=== PATIENT | female | born 1980 | race Caucasian/White ===

== ENCOUNTER → 2022-11-09 08:28 | Outpatient (BNVA) | payer OTHER, SELFPAY | PROVIDERS: PCP Family Medicine; Visit Provider Nurse Practitioner Family ==

== ENCOUNTER → 2022-12-21 10:36 | Outpatient (REF) | payer OTHER, SELFPAY | LOC: HO.SL 10:36 | PROVIDERS: Visit Provider Nurse Practitioner Family | DX: G47.19 Other hypersomnia (principal); G43.709 Chronic migraine without aura, not intractable, without status migrainosus; R06.83 Snoring; R53.83 Other fatigue | CPT/HCPCS: 95806 ==

== ENCOUNTER → 2022-12-21 11:05 | Outpatient (BNV) | payer OTHER, SELFPAY | PROVIDERS: Visit Provider Psychiatry & Neurology Neurology | DX: R06.83 Snoring (principal) | CPT/HCPCS: 95806 ==

== ENCOUNTER 2023-03-14 08:02 | Outpatient (AMB) | payer OTHER, SELFPAY ==
--- NOTE | 2023-03-14 08:24 | A.OFFVIS_ITS ---
Intake Vital Signs 03/14/23 08:25 Height 5 ft 5 in BP 122/84 Blood Pressure Location Rt brachial Position Sitting Intake Visit Reasons: 3month follow up Migraines-LVM Intake Note: patient presents for 3 month follow up. patient states Headaches not getting better Allergies No Known Allergies Allergy (Verified 03/14/23 08:26) Medication List - Last Reconciled 03/14/23 by PAIGE Santoyo magnesium oxide 400 mg PO BEDTIME 30 days norethindrone ac-eth estradiol 1-20 mg-mcg (Junel) 1 tab PO DAILY propranolol 10 mg PO BID 30 days riboflavin (vitamin B2) 400 mg (4 x 100 mg) PO DAILY 30 days sertraline 100 mg PO DAILY topiramate 50 mg PO BID zolmitriptan mg PO HPI HPI Comments History of Present Illness Details 42-yr-old female presents for f/u visit. Pt denies any significant interval medical changes. Pt reports she is now having an almost daily headache now that she has returned to work. She is usually better on the weekend. She did not tolerate Propranol- made her feel too sleepy. She is compliant w/ Topiramte- feels it does help reduce the intensity of the headaches- however wonders if this could be causing a rash she has been having on her lower legs. She has seen derm for this and they were not sure ratna Topiramate would could this. Her Zomig usually works, rarely needs to repeat a dose, but soemtimes repeats x's 1-2 times. She continues to have sleep difficulties- wakes up every night around 2-3am and has difficulty falling back to sleep. Her HST showed AHI 0.1/hr and O2 shahid 89%. She notes she did not sleep well during the study. She takes Sertraline 100mg qhs. [facility] Surgical History History of knee surgery Family History Father Alcoholism Leukemia Mother Hypertension Brain tumor Social History Alcohol intake: never Patient Tobacco Use Status: Never used Tobacco Review of Systems Const All systems reviewed & are unremarkable except as noted in HPI and below Physical Exam Vital Signs: Last Vital Signs BP 122/84 03/14/23 08:25 Const General: cooperative and no acute distress Orientation/consciousness: patient oriented x3 HEENT Head: Yes normocephalic Resp Effort & Inspection: normal respiratory effort and able to speak in complete sentences Neuro General: patient oriented x3, gait normal and CN's II-XI intact bilaterally Cognition (Neuro): normal cognition Motor exam (neuro): 5/5 motor strength present throughout Psych Appearance: grossly normal Mental Status: mental status grossly normal Speech and movement: Normal speech and movement present Affect: normal affect Attitude: cooperative Thought process: Normal thought process present Thought content: Normal thought content present Insight: Good insight present (Psych) Judgement: Good judgement present (Psych) Assessment & Plan Assessment & Plan (1) Chronic migraine without aura: Code(s): G43.709 - Chronic migraine without aura, not intractable, without status migrainosus (2) Cervicalgia: Code(s): M54.2 - Cervicalgia (3) Excessive daytime sleepiness: Code(s): G47.19 - Other hypersomnia (4) Sleep difficulties: Code(s): G47.9 - Sleep disorder, unspecified (5) Fatigue: Code(s): R53.83 - Other fatigue (6) Snoring: Code(s): R06.83 - Snoring Plan Reviewed HST- inconclusive- pt advised to undergo in-lab PSG. Adjust Sertraline to qam- in hopes this alleviates sleep fragmentation. For overall headache management: Continue to try to optimize good self-care, including but not limited to maintaining a healthy diet, adequate fluid intake, adequate sleep, and engaging in regular physical activity. Track headaches. ? For acute headache treatment: Continue Zolmitriptan 5mg prn. Previous acute migraine medication trials: None other Acute migraine medication contraindications: None at this time ? For headache prevention medication: Continue Riboflavin 400mg qam Continue Magnesium 400mg qhs Reduce Topiramate from 50mg bid to 50mg qhs- monitor rash. Topiramate does carry a s/e risk fo erythema multiforme. Stop Propranolol 10mg po bid. Trial Ajovy 225mg sc q month. Previous migraine prevention medication trials: Amitriptyline- ineffective. Propranolol- not tolerated- caused fatigue/tiredness/ Migraine prevention medication contraindications: None at this time. Future considerations: Botox. ? Pt to follow-up in 3-4 months or sooner prn. Orders: Orders RT PSG in-lab sleep study Today G47.19 - Other hypersomnia, G47.9 - Sleep disorder, unspecified, R06.83 - Snoring Medications: New fremanezumab-vfrm (Ajovy) administer 225mg sc q month 225 mg (1.5 mL) subcut ONCE 1.5 mL 6RF 30 days Coding Level of Care Code Est Pt Level 4 (65766) Diagnoses Chronic migraine without aura G43.709 Cervicalgia M54.2 Excessive daytime sleepiness G47.19 Sleep difficulties G47.9 Fatigue R53.83 Snoring R06.83
[2023-03-14 08:25] VITALS: BP 122/84
== END 2023-03-14 09:02 | disposition home or self-care (01) ==
PROVIDERS: Visit Provider Nurse Practitioner Family
DX: G43.709 Chronic migraine without aura, not intractable, without status migrainosus (principal); M54.2 Cervicalgia; G47.19 Other hypersomnia; G47.9 Sleep disorder, unspecified; R53.83 Other fatigue; R06.83 Snoring
CPT/HCPCS: 99214

== ENCOUNTER → 2023-03-14 08:02 | Outpatient (BNVA) | payer OTHER, SELFPAY | PROVIDERS: Visit Provider Nurse Practitioner Family ==

== ENCOUNTER 2023-06-24 08:09 | Outpatient (AMB) | payer OTHER, SELFPAY ==
--- NOTE | 2023-06-24 08:30 | A.OFFVIS_ITS ---
Intake Vital Signs 06/24/23 08:31 Height 5 ft 5 in Weight 243 lb BMI 40.4 BP 118/82 Blood Pressure Location Rt brachial Position Sitting Pulse 85 Pulse Source Pulse Oximeter Pulse Oximetry (%) 98 Oxygen Delivery Method Room Air Intake Visit Reasons: 3 mnts f/u for migraines - LVM Intake Note: Patient presents for 3 month follow up migraines Im still having headaches, we were supposed to start some injections not sure what happened with that. Allergies No Known Allergies Allergy (Verified 06/24/23 08:33) Medication List - Last Reconciled 06/24/23 by PAIGE Santoyo fremanezumab-vfrm (Ajovy) 225 mg (1.5 mL) subcut ONCE 30 days magnesium oxide 400 mg PO BEDTIME 30 days norethindrone ac-eth estradiol 1-20 mg-mcg (Junel) 1 tab PO DAILY propranolol 10 mg PO BID 30 days riboflavin (vitamin B2) 400 mg (4 x 100 mg) PO DAILY 30 days sertraline 100 mg PO DAILY topiramate 50 mg PO BID zolmitriptan mg PO HPI HPI Comments History of Present Illness Details 42-yr-old female presents for f/u visit. Pt denies any interval infections. She did have left lower lip fibroma excision- was benign, but was on a soft diet up until 2 days ago. She has been having more left sinus pain- but no dental pain, nasal congestion, fever, cough, or URI s/s She has been having more headaches, a bit different than her usual, more vincent than typical, more frequent. Baseline headache characteristics: Aura: May rarely see a squiggly line. Severe left sided constant sharp/driving pain a/w photophpbia, phonophobia, osmophobia, allodynia, N/V, need to move slowly- may induce a not right in space feeling, cannot function. Current number of typical migraine days per month: Every day in the past- more sharp. prior 4-5 days per week. Average painfulness of these migraines: This week severe, prior more moderate Current number of non-migraine headache days per month: a couple a month Average painfulness of these headaches: milder Current number of days of acute medication use per month: rare Previous number of migraine days per month prior to starting current preventive tx: 4-5 days per week [facility] Surgical History History of knee surgery Family History Father Alcoholism Leukemia Mother Hypertension Brain tumor Social History Alcohol intake: never Patient Tobacco Use Status: Never used Tobacco Physical Exam Vital Signs: Last Vital Signs Pulse 85 06/24/23 08:31 BP 118/82 06/24/23 08:31 Pulse Ox 98 06/24/23 08:31 Oxygen Delivery Method Room Air 06/24/23 08:31 BMI result Body Mass Index 40.4 Const General: cooperative and no acute distress Orientation/consciousness: patient oriented x3 HEENT Other: Mild left lower maxillary sinus tenderness to touch. No nasal congestion. Resp Effort & Inspection: normal respiratory effort and able to speak in complete sentences Neuro General: patient oriented x3 Cranial nerves: Yes CN's II-XII intact bilaterally Cognition (Neuro): normal cognition Psych Appearance: grossly normal Mental Status: mental status grossly normal Speech and movement: Normal speech and movement present Affect: normal affect Attitude: cooperative Assessment & Plan Assessment & Plan (1) Chronic migraine without aura: Code(s): G43.709 - Chronic migraine without aura, not intractable, without status migrainosus (2) Migraine with aura: Code(s): G43.109 - Migraine with aura, not intractable, without status migrainosus (3) Sleep difficulties: Code(s): G47.9 - Sleep disorder, unspecified Plan HST- inconclusive- f/u on status of in-lab PSG. ? For overall headache management: Continue to try to optimize good self-care, including but not limited to maintaining a healthy diet, adequate fluid intake, adequate sleep, and engaging in regular physical activity. Track headaches. ? For acute headache treatment: Continue Zolmitriptan 5mg prn. Trial Ubrelvy sample- in hopes this helps recent increased headaches. Previous acute migraine medication trials: None other Acute migraine medication contraindications: None at this time ? For headache prevention medication: Continue Riboflavin 400mg qam Continue Magnesium 400mg qhs Continue Topiramate. Start Ajovy 225mg sc q month- will start today w/ sample Ajovy dose and injection training by EMMANUELLE. Previous migraine prevention medication trials: Amitriptyline- ineffective. Propranolol- not tolerated- caused fatigue/tiredness/ Migraine prevention medication contraindications: None at this time. Future considerations: Botox. ? Pt to follow-up in 3-4 months or sooner prn. Ubrelvy 100mg tab sample, 1 tab per box, given to pt: 1 tab at onset, MR hayes's 1 (max 2 tabs per day) 2 boxes, w/ 1 tablet each, Lot # [id number], exp 03/07 1 box, w/ 1 tab, lot # [id number], exp 03/07 (total 3 boxes for 3 100mg tabs) Documented by Cailin Gaytan RN: 42 y/o female patient presents for Ajovy injection training. Ajovy 225 mg/1.5ml injection sample provided. Lot #[id number] and Apr 2025 Education regarding injection and side effects provided. Reviewed storage instructions and gave savings card information. Ajovy 225 mg/1.5ml injection administered on RLQ. Pt tolerated the injection well. Medications: Refilled fremanezumab-vfrm (Ajovy) administer 225mg sc q month 225 mg (1.5 mL) subcut ONCE 30 days 1.5 mL 6RF Coding Level of Care Code Est Pt Level 4 (78074) Diagnoses Chronic migraine without aura G43.709 Migraine with aura G43.109 Sleep difficulties G47.9
[2023-06-24 08:31] VITALS: BP 118/82; PULSE 85; O2SAT 98; BMI 40.4
== END 2023-06-24 08:59 | disposition home or self-care (01) ==
PROVIDERS: PCP Family Medicine; Visit Provider Nurse Practitioner Family
DX: G43.709 Chronic migraine without aura, not intractable, without status migrainosus (principal); G43.109 Migraine with aura, not intractable, without status migrainosus; G47.9 Sleep disorder, unspecified
CPT/HCPCS: 99214

== ENCOUNTER → 2023-06-24 08:09 | Outpatient (BNVA) | payer OTHER, SELFPAY | PROVIDERS: PCP Family Medicine; Visit Provider Nurse Practitioner Family ==

== ENCOUNTER 2023-10-07 08:08 | Outpatient (AMB) | payer OTHER, SELFPAY ==
--- NOTE | 2023-10-07 08:10 | A.OFFVIS_ITS ---
Vital Signs 10/07/23 08:11 Height 5 ft 5 in Weight 246 lb BMI 40.9 BP 112/78 Blood Pressure Location Rt brachial Position Sitting Pulse 75 Pulse Source Pulse Oximeter Pulse Oximetry (%) 100 Oxygen Delivery Method Room Air Intake Visit Reasons: 4M follow up/ LVM Intake Note: Patient presents for 4 month follow up. patients headaches are better Allergies No Known Allergies Allergy (Verified 10/07/23 08:12) Medication List - Last Reconciled 10/07/23 by PAIGE Santoyo fremanezumab-vfrm (Ajovy) 225 mg (1.5 mL) subcut ONCE 30 days magnesium oxide 400 mg PO BEDTIME 30 days norethindrone ac-eth estradiol 1-20 mg-mcg (Junel) 1 tab PO DAILY propranolol 10 mg PO BID 30 days riboflavin (vitamin B2) 400 mg (4 x 100 mg) PO DAILY 30 days sertraline 100 mg PO DAILY topiramate 50 mg PO BID zolmitriptan mg PO HPI Comments Details: 42-yr-old female presents for f/u visit. Pt denies any significant interval medical changes. Pt is wondering if she can have the Ajovy autoinjector version rather than the syringe version which she has been receiving. Note- it is ordered as autoinjector. She states her migraine attacks are better. Not running out of her acute med by the end of the month. She is having 2-3 migraine attacks per week, which are more manageable. She did notice an increase headache on a day when she forgot to take her am Topiramate. Baseline headache characteristics: Aura: May rarely see a squiggly line. Severe left sided constant sharp/driving pain a/w photophpbia, phonophobia, osmophobia, allodynia, N/V, need to move slowly- may induce a not right in space feeling, cannot function. She feels more cognitive difficulties. She is having more difficulty following conversations, and can be forgetful. Has left the stove on or the sink bathroom sink running- flooded her bathroom. Has always needed to keep lists, but now has lists upon lists. She feels she is sleeping better. She takes daily walks. Has h/o depression, depression feels better. Has anxiety. No dx of ADD/ADHD. [facility] Surgical History History of knee surgery Family History Father Alcoholism Leukemia Mother Hypertension Brain tumor Social History Alcohol intake: never Patient Tobacco Use Status: Never used Tobacco Physical Exam Vital Signs: Last Vital Signs Pulse 75 10/07/23 08:11 BP 112/78 10/07/23 08:11 Pulse Ox 100 10/07/23 08:11 Oxygen Delivery Method Room Air 10/07/23 08:11 BMI result Body Mass Index 40.9 Const General: cooperative and no acute distress Orientation/consciousness: patient oriented x3 Resp Effort & Inspection: normal respiratory effort and able to speak in complete sentences Neuro General: patient oriented x3 Cranial nerves: Yes CN's II-XII intact bilaterally Cognition (Neuro): normal cognition Psych Appearance: grossly normal Mental Status: mental status grossly normal Speech and movement: Normal speech and movement present Affect: normal affect Attitude: cooperative Assessment & Plan Assessment & Plan (1) Migraine with aura: Code(s): G43.109 - Migraine with aura, not intractable, without status migrainosus Category: Medical (2) Cognitive dysfunction: Code(s): F09 - Unspecified mental disorder due to known physiological condition Category: Medical (3) Anxiety: Code(s): F41.9 - Anxiety disorder, unspecified Category: Medical Plan Will request psychiatry consult- for worsening cognitive s/s. Labs for common etiologies of cognitive s/s. HST- inconclusive- upon review of above, reconsider in-lab PSG to assess for PLMS. ? For overall headache management: Continue to try to optimize good self-care, including but not limited to maintaining a healthy diet, adequate fluid intake, adequate sleep, and engaging in regular physical activity. Track headaches. ? For acute headache treatment: Continue Zolmitriptan 5mg prn. Previous acute migraine medication trials: None other Acute migraine medication contraindications: None at this time ? For headache prevention medication: Continue Riboflavin 400mg qam Continue Magnesium 400mg qhs Continue Topiramate. Discussed trying long-acting version, however pt is hesitant to disrupt her current migraine tx regimen, as it is effective right now. Continue Ajovy 225mg sc q month, as pt has had significant reduction in migraine severity, frequency, and prn med use. Previous migraine prevention medication trials: Amitriptyline- ineffective. Propranolol- not tolerated- caused fatigue/tiredness/ Migraine prevention medication contraindications: None at this time. Future considerations: Botox. ? Pt to follow-up in 6 months or sooner prn. Orders: Orders MALIK Reflex Titer and Pattern Today F09 - Unspecified mental disorder due to known physiological condition, F41.9 - Anxiety disorder, unspecified, G43.109 - Migraine with aura, not intractable, without status migrainosus, R53.83 - Other fatigue Syphilis Screen Today F09 - Unspecified mental disorder due to known physiological condition, F41.9 - Anxiety disorder, unspecified, G43.109 - Migraine with aura, not intractable, without status migrainosus, R53.83 - Other fatigue Complete Blood Count Auto Diff Today F09 - Unspecified mental disorder due to known physiological condition, F41.9 - Anxiety disorder, unspecified, G43.109 - Migraine with aura, not intractable, without status migrainosus, R53.83 - Other fatigue Homocysteine Today D64.9 - Anemia, unspecified, F09 - Unspecified mental disorder due to known physiological condition, F41.9 - Anxiety disorder, unspecified, G43.109 - Migraine with aura, not intractable, without status migrainosus, R53.83 - Other fatigue IRON PROFILE Today D64.9 - Anemia, unspecified, F09 - Unspecified mental disorder due to known physiological condition, F41.9 - Anxiety disorder, unspecified, G43.109 - Migraine with aura, not intractable, without status migrainosus, R53.83 - Other fatigue Ferritin Today D64.9 - Anemia, unspecified, F09 - Unspecified mental disorder due to known physiological condition, F41.9 - Anxiety disorder, unspecified, G43.109 - Migraine with aura, not intractable, without status migrainosus, R53.83 - Other fatigue Hemoglobin A1c Today F09 - Unspecified mental disorder due to known physiological condition, F41.9 - Anxiety disorder, unspecified, G43.109 - Migraine with aura, not intractable, without status migrainosus, R53.83 - Other fatigue Comprehensive Met. Panel Today F09 - Unspecified mental disorder due to known physiological condition, F41.9 - Anxiety disorder, unspecified, G43.109 - Migraine with aura, not intractable, without status migrainosus, R53.83 - Other fatigue Erythrocyte Sedimentation Rate Today F09 - Unspecified mental disorder due to known physiological condition, F41.9 - Anxiety disorder, unspecified, G43.109 - Migraine with aura, not intractable, without status migrainosus, R53.83 - Other fatigue Rheumatoid Factor Today F09 - Unspecified mental disorder due to known physiological condition, F41.9 - Anxiety disorder, unspecified, G43.109 - Migraine with aura, not intractable, without status migrainosus, R53.83 - Other fatigue TSH reflex Free T4 Today F09 - Unspecified mental disorder due to known physiological condition, F41.9 - Anxiety disorder, unspecified, G43.109 - Migraine with aura, not intractable, without status migrainosus, R53.83 - Other fatigue Vitamin B12 and Folate Today D64.9 - Anemia, unspecified, F09 - Unspecified mental disorder due to known physiological condition, F41.9 - Anxiety disorder, unspecified, G43.109 - Migraine with aura, not intractable, without status migrainosus, R53.83 - Other fatigue Methylmalonic Acid Today D64.9 - Anemia, unspecified, F09 - Unspecified mental disorder due to known physiological condition, F41.9 - Anxiety disorder, unspecified, G43.109 - Migraine with aura, not intractable, without status migrainosus, R53.83 - Other fatigue HIV Ab/Ag Today F09 - Unspecified mental disorder due to known physiological condition, F41.9 - Anxiety disorder, unspecified, G43.109 - Migraine with aura, not intractable, without status migrainosus, R53.83 - Other fatigue CRP High Sensitivity Today F09 - Unspecified mental disorder due to known physiological condition, F41.9 - Anxiety disorder, unspecified, G43.109 - Migraine with aura, not intractable, without status migrainosus, R53.83 - Other fatigue Folate Today D64.9 - Anemia, unspecified Referrals Psychiatry Outpatient Consultation Service F09 - Unspecified mental disorder due to known physiological condition, F41.9 - Anxiety disorder, unspecified, G43.109 - Migraine with aura, not intractable, without status migrainosus, R53.83 - Other fatigue, Z86.59 - Personal history of other mental and behavioral disorders, Z87.59 - Personal history of other complications of , childbirth and the puerperium Coding Level of Care Code Est Pt Level 4 (90332) Diagnoses Migraine with aura G43.109 Cognitive dysfunction F09 Anxiety F41.9
[2023-10-07 08:11] VITALS: BP 112/78; PULSE 75; O2SAT 100; BMI 40.9
== END 2023-10-07 09:02 | disposition home or self-care (01) ==
PROVIDERS: PCP Family Medicine; Visit Provider Nurse Practitioner Family
DX: G43.109 Migraine with aura, not intractable, without status migrainosus (principal); R41.89 Other symptoms and signs involving cognitive functions and awareness; F41.9 Anxiety disorder, unspecified
CPT/HCPCS: 99214

== ENCOUNTER → 2023-10-07 08:08 | Outpatient (BNVA) | payer OTHER, SELFPAY | PROVIDERS: PCP Family Medicine; Visit Provider Nurse Practitioner Family ==

== ENCOUNTER 2024-10-12 08:30 | Outpatient (AMB) | payer OTHER, SELFPAY ==
[2024-10-12 08:41] VITALS: BP 120/90; PULSE 81; O2SAT 97; BMI 41.3
--- NOTE | 2024-10-12 08:41 | MHC.OFFVIS ---
Vital Signs 10/12/24 08:41 Height 5 ft 5 in Weight 248 lb BMI 41.3 BP 120/90 H Blood Pressure Location Lt brachial Pulse 81 Pulse Source Pulse Oximeter Pulse Oximetry (%) 97 Oxygen Delivery Method Room Air Intake Visit Reasons: Migraine follow-up Intake Note: Patient presents follow up for migraines. Material Expeditor Required: No Accompanied by: Self / Same As Patient Allergies No Known Allergies Allergy (Verified 10/12/24 08:43) Medication List - Last Reconciled 10/12/24 by PAIGE Santoyo cyanocobalamin (vitamin B-12) 500 mcg PO DAILY 30 days fremanezumab-vfrm (Ajovy) 225 mg (1.5 mL) subcut ONCE 30 days magnesium oxide 400 mg PO BEDTIME 30 days norethindrone ac-eth estradiol 1-20 mg-mcg (Junel) 1 tab PO DAILY propranolol 10 mg PO BID 30 days riboflavin (vitamin B2) 400 mg (4 x 100 mg) PO DAILY 30 days sertraline 100 mg PO DAILY tirzepatide (weight loss) (Zepbound) 5 mg subcut QWEEK zolmitriptan mg PO HPI Comments Details: 43-yr-old female presents for f/u visit for migraine. Pt denies any significant interval medical changes. Pt has also started Zepbound tx- and is tolertaing that well. Pt stopped the Ajovy as she was having increasingly worse injection site reactions, which would extend across her arm- this was painful, tingly, itchy, hot, and made it difficult to sleep- even with premedicating with benadryl. She stopped topiramate d/t insurance denial. Currently, her migraine attacks have increased since stopping Ajovy. Not running out of her acute med by the end of the month. Again having 4-5 migraine attacks per week, which are less managable. She did notice an increase headache on a day when she forgot to take her am Topiramate. Baseline headache characteristics: Aura: May rarely see a squiggly line. Severe left sided constant sharp/driving pain a/w photophpbia, phonophobia, osmophobia, allodynia, N/V, need to move slowly- may induce a not right in space feeling, cannot function. She feels her cognitive s/s are a bit better off of topiramate. [facility] Medical History (Updated 03/13/24 @ 09:17 by PAIGE Santoyo) Weight gain Surgical History History of knee surgery Family History Father Alcoholism Leukemia Mother Hypertension Brain tumor Social History Alcohol intake: never Patient Tobacco Use Status: Never used Tobacco Physical Exam Vital Signs: Last Vital Signs Pulse 81 10/12/24 08:41 BP 120/90 H 10/12/24 08:41 Pulse Ox 97 10/12/24 08:41 Oxygen Delivery Method Room Air 10/12/24 08:41 BMI result Body Mass Index 41.3 Const General: cooperative and no acute distress Orientation/consciousness: patient oriented x3 Resp Effort & Inspection: normal respiratory effort and able to speak in complete sentences Neuro General: patient oriented x3 Cranial nerves: Yes CN's II-XII intact bilaterally Cognition (Neuro): normal cognition Psych Appearance: grossly normal Mental Status: mental status grossly normal Speech and movement: Normal speech and movement present Affect: normal affect Attitude: cooperative Assessment & Plan Assessment & Plan (1) Migraine with aura: Code(s): G43.109 - Migraine with aura, not intractable, without status migrainosus Category: Medical (2) Cognitive dysfunction: Code(s): F09 - Unspecified mental disorder due to known physiological condition Category: Medical (3) Anxiety: Code(s): F41.9 - Anxiety disorder, unspecified Category: Medical Plan For cognitive s/s: Continue vitamin B1-2 500mcg daily. Improved off topiramate. Monitor clinically. HST- inconclusive- upon review of above, reconsider in-lab PSG to assess for PLMS. ? For overall headache management: Continue to try to optimize good self-care, including but not limited to maintaining a healthy diet, adequate fluid intake, adequate sleep, and engaging in regular physical activity. Track headaches. ? For acute headache treatment: Continue Zolmitriptan 5mg prn. Previous acute migraine medication trials: None other Acute migraine medication contraindications: None at this time ? For headache prevention medication: Continue Riboflavin 400mg qam Continue Magnesium 400mg qhs Pt has stopped Topiramate- cognition has improved thus will d/c order. Stop Ajovy 225mg sc q month- caused severe diffuse injection site reaction. Start Aimovig 140mg/ml autoinjector, 1ml (140mg) subcutaneous injection once a month. Potential adverse effects of Aimovig include but are not limited to injection site reactions, cramps, constipation, increase in blood pressure. Previous migraine prevention medication trials: Amitriptyline- ineffective. Propranolol- not tolerated- caused fatigue/tiredness. Topiramate caused cognitive difficulties. Ajovy 225mg sc q month- caused severe diffuse injection site reaction. Migraine prevention medication contraindications: None at this time. Future considerations: Botox. ? Pt to follow-up in 6 months or sooner prn. Medications: New erenumab-aooe (Aimovig Autoinjector) 140 mg subcut ONCE 30 days 1 mL 6RF Refilled cyanocobalamin (vitamin B-12) 500 mcg PO DAILY 30 days 30 tabs 6RF E53.8 - Deficiency of other specified B group vitamins Discontinued propranolol Discontinued Reason: Doctor's Order 10 mg PO BID 30 days 60 tabs 3RF G43.709 - Chronic migraine without aura, not intractable, without status migrainosus fremanezumab-vfrm (Ajovy) administer 225mg sc q month Discontinued Reason: Doctor's Order 225 mg (1.5 mL) subcut ONCE 30 days 1.5 mL 6RF Coding Level of Care Code Est Pt Level 4 (96735) Diagnoses Migraine with aura G43.109 Cognitive dysfunction F09 Anxiety F41.9
== END 2024-10-12 09:17 | disposition home or self-care (01) ==
LOC: HO.HSMS 08:30
PROVIDERS: PCP Family Medicine; Visit Provider Nurse Practitioner Family
DX: G43.109 Migraine with aura, not intractable, without status migrainosus (principal); R41.89 Other symptoms and signs involving cognitive functions and awareness; F41.9 Anxiety disorder, unspecified
CPT/HCPCS: 99214

== ENCOUNTER → 2024-10-12 08:30 | Outpatient (BNVA) | payer OTHER, SELFPAY | PROVIDERS: PCP Family Medicine; Visit Provider Nurse Practitioner Family ==

== ENCOUNTER 2025-04-15 08:28 | Outpatient (REF) | payer OTHER, SELFPAY ==
--- NOTE | ~2025-04-15 | XR_ITS ---
EXAMINATION: XR CHEST CLINICAL INFORMATION: R05.9 - Cough, unspecified COMPARISON: None available. TECHNIQUE: 2 views of the chest were obtained. FINDINGS: Punctate density in the medial right apex is likely a small calcified granuloma. There are mildly coarse lung markings. There is vague opacity minimally obscuring the lateral left hemidiaphragm. There is no pneumothorax There is no sign of pleural effusion. Heart size is within normal limits. XR/XR chest 2V IMPRESSION: Vague opacity in the lateral left lung base is probably atelectasis. Pneumonia is less likely. Electronically signed by: Stanford Le MD 04/15/2025 10:41 AM RATNA
== END 2025-04-15 08:29 | disposition home or self-care (01) ==
LOC: HO.XRAY 08:28
PROVIDERS: Absent Provider Family Medicine; PCP Family Medicine; Visit Provider Nurse Practitioner Family
DX: G43.109 Migraine with aura, not intractable, without status migrainosus (principal); R05.1 Acute cough; E53.8 Deficiency of other specified B group vitamins; J20.9 Acute bronchitis, unspecified; F09 Unspecified mental disorder due to known physiological condition; F41.9 Anxiety disorder, unspecified; Z79.899 Other long term (current) drug therapy
CPT/HCPCS: 71046

== ENCOUNTER 2025-04-15 08:28 | Outpatient (AMB) | payer OTHER, SELFPAY ==
--- OUTSIDE RECORDS SUMMARY | 2022-05-05 15:06 | XMS_ITS | Encounter Summary ---
Author Organization [facility] Address [address] [place] [address] Phone Care Team Providers Care Hotel Manager Name Role Phone Selena Dias MD Primary Care Provider [phone] Encounter Details Date Type Department Care Team (Late st Contact Info) Description 05/05/2022 3:06 PM EST Hospital Encounter [facility] [address] [place] [id number] Hetal Tidwell FNP [address] [place] [address] [email or web address] Social History Tobacco Use Types Packs/Day Years Used Date Smoking Tobacco: Never Smokeless Tobacco: Never Alcohol Use Standard Drinks/Week Comments Not Currently 0 (1 standard drink = 0.6 oz pur e alcohol) very rare Child or Family Care Answer Date Record ed Do you have problems with on e of the following making it difficult for you to work, study, or receive health care? No 11/12/2021 Education Answer Date Recorded Are you interested in more education? Not on russell e 11/22/2023 Are you concerned about learning? Not on file 11/22/2023 No 11/22/2023 No 11/22/2023 Food Answer Date Recorded Within the past 6 months we worried whether our food would run out before we got money to buy more. Never True 11/25/2024 Within the past 6 months the food we bought just didn't last and we didn't have enough money to get more. Never True Residential Stability Answer Date Recor ded What is your housing situation today? I have eileen gamez 11/25/2024 How many times have you move d in the past 12 months? Zero (I did not move) 11/25/2024 Paying for Meds Answer Date Recorded Do you have trouble paying for medicines? No 11/25/2024 Paying Utility Bills Answer Date Record ed Do you have trouble paying your heating or elect ricity bill? No 11/25/2024 Transportation Answer Date Recorded Has the lack of transportati on kept you from medical appointments or from getting medications? No 11/25/2024 Unemployment Answer Date Recorded Are you currently unemployed or working on a part-time or temporary basis, and looking for work? No 11/12/2021 Digital Access Answer Date Recorded No 11/25/2024 Yes 11/25/2024 Do you have reliable internet access at home? Ye s 11/25/2024 Do you have a device (e.g., phone, tablet, computer) with a working camera? Yes 11/25/2024 Intimate Partner Violence Answer Date R ecorded Are you denied basic needs s uch as food, clothing, or medical care? No 11/25/2024 In the past 12 months have y ou been in a relationship with a person who hurts, threatens, or tries to control you? No 11/25/2024 Are you denied basic needs s uch as food, clothing, or medical care? No 11/25/2024 In the past 12 months have y ou been in a relationship with a person who hurts, threatens, or tries to control you? 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 Wish to be (Past 1 Month) No 025 11:02 AM CINTIAT Krupa Goodwin RN 2. Non-Specific Active Suici nba Thoughts (Past 1 Month) No 11/25/2024 11:02 AM EDT Lou Goodwin RN 6. Suicidal Behavior (Lifetime) No 11:02 AM EDT Krupa Goodwin RN documented as of this encounter Plan of Treatment Upcoming Encounters Date Type Department Care Team (Late st Contact Info) Description 09/18/2025 3:30 PM EDT Office Visit [address] [place] [address] Selena Dias MD [address] [place] [address], [address] [place] [address] [email or web address] documented as of this encounter Procedures Procedure Name Priority Date/Time Associated Diagnosis Comments XR ELBOW 3 OR MORE VIEWS (RIGHT) Urgent/patient waiting 05/05/2022 3:13 PM EST Fall, initial encounter documented in this encounter Results * XR ELBOW 3 OR MORE VIEWS (RIGHT) (05/05/2022 3:13 PM EST) Anatomical Region Laterality Modality Elbow Right Computed Radiogr aphy 05/05/2022 3:19 PM EST Impressions 05/05/2022 3:20 PM EST No fracture or dislocation. Narrative 05/05/2022 3:20 PM EST XR ELBOW 3 OR MORE VIEWS (RIGHT) COMPARISON: None. FINDINGS: No fracture. Normal alignment. Normal joint spaces. No effusion. No significant soft tissue swelling. Procedure Note Lay Ng MD - 05/05/2022 XR ELBOW 3 OR MORE VIEWS (RIGHT) COMPARISON: None. FINDINGS: No fracture. Normal alignment. Normal joint spaces. No effusion. Nosignificant soft tissue swelling. IMPRESSION: No fracture or dislocation. Hetaljohnathan Tidwell FIELD FOREMAN IMG XR UPPER EXTREMITY Christine l Result documented in this encounter Visit Diagnoses Not on filedocumented in this encounter Additional Health Concerns Assessment Noted Time PHQ-9 Depression Total Score: 11 022 9:37 AM EDT PHQ-2 Depression Total Score: 3 11/13/19 22 9:37 AM EDT documented as of this encounter Care Teams Hotel Manager Relationship Specialty Start Date End Date Selena Dias MD [address] [place] [address], [address] [place] [address] [email or web address] PCP - General 06/16/17 documented as of this encounter Additional Source Comments The information contained in this document represents components of the legal health record. It is not the complete legal health record.[facility]
[2025-04-15 08:29] VITALS: BP 120/82; PULSE 90; O2SAT 96; BMI 39.6
--- NOTE | 2025-04-15 08:29 | A.OFFVIS_ITS ---
Vital Signs 04/15/25 08:29 Height 5 ft 5 in Weight 238 lb BMI 39.6 BP 120/82 Blood Pressure Location Lt brachial Position Sitting Pulse 90 Pulse Source Pulse Oximeter Pulse Oximetry (%) 96 Oxygen Delivery Method Room Air Intake Visit Reasons: 6m follow-up Intake Note: Patient presents follow up for migraines. P[employer] Ticket Cashier Required: No Accompanied by: Self / Same As Patient Allergies No Known Allergies Allergy (Verified 04/15/25 08:30) Medication List - Last Reconciled 04/15/25 by PAIGE Santoyo cyanocobalamin (vitamin B-12) 500 mcg PO DAILY 30 days galcanezumab-gnlm (Emgality Pen) 120 mg subcut Q30D 30 days magnesium oxide 400 mg PO BEDTIME 30 days norethindrone ac-eth estradiol 1-20 mg-mcg (Junel) 1 tab PO DAILY riboflavin (vitamin B2) 400 mg (4 x 100 mg) PO DAILY 30 days semaglutide (weight loss) (Wegovy) 2.4 mg subcut QWEEK sertraline 100 mg PO DAILY zolmitriptan mg PO HPI Comments Details: 43-yr-old female presents for f/u visit for migraine. Pt denies any significant interval medical changes, however hse has had a phlegmy cough x's 3 weeks, which seems to be gradually worsening a/w some SOB, chest muscle pain. She denies a history of asthma. Her weight loss therapy was switched from Zepbound to Wegovy, which she is tolerating well but feels it is not as effective as zepbound was. She thinks she needs to increase her physical activity, but this is limited due After the visit, request for Aimovig was denied by her insurance company, as they preferred Emgality. Therefore, she was started on Emgality, which she states she is tolerating much better than Ajovy. On her current preventative regimen, she is having approximately 1 migraine day per week, which is responsive to her as-needed Zomig. Prior to starting Emgality, she was having 4-5 migraine attack days per week. Currently, her migraine attacks have increased since stopping Ajovy. Not running out of her acute med by the end of the month. Baseline headache characteristics: Aura: May rarely see a squiggly line. Severe left sided constant sharp/driving pain a/w photophpbia, phonophobia, osmophobia, allodynia, N/V, need to move slowly- may induce a not right in space feeling, cannot function. [facility] Medical History (Updated 04/15/25 @ 09:17 by PAIGE Santoyo) Weight gain Surgical History History of knee surgery Family History Father Alcoholism Leukemia Mother Hypertension Brain tumor Social History Alcohol intake: never Patient Tobacco Use Status: Never used Tobacco Physical Exam Vital Signs: Last Vital Signs Pulse 90 04/15/25 08:29 BP 120/82 04/15/25 08:29 Pulse Ox 96 04/15/25 08:29 Oxygen Delivery Method Room Air 04/15/25 08:29 BMI result Body Mass Index 39.6 Const General: cooperative and no acute distress Orientation/consciousness: patient oriented x3 Resp Other: Nonproductive cough Speaking more than 1-2 sentences elicits mild dyspnea Breath sounds include bilateral auditory wheeze, rhonchi, however appreciation was limited as deep breathes triggered bronchospasm/cough. Neuro General: patient oriented x3 Cranial nerves: Yes CN's II-XII intact bilaterally Cognition (Neuro): normal cognition Psych Appearance: grossly normal Mental Status: mental status grossly normal Speech and movement: Normal speech and movement present Affect: normal affect Attitude: cooperative Assessment & Plan Assessment & Plan (1) Migraine with aura: Code(s): G43.109 - Migraine with aura, not intractable, without status migrainosus Category: Medical Qualifiers: Status migrainosus presence: without status migrainosus Intractability: not intractable Qualified Code(s): G43.109 - Migraine with aura, not intractable, without status migrainosus (2) Cognitive dysfunction: Code(s): F09 - Unspecified mental disorder due to known physiological condition Category: Medical (3) Anxiety: Code(s): F41.9 - Anxiety disorder, unspecified Category: Medical (4) Cough: Code(s): R05.9 - Cough, unspecified Category: Medical Qualifiers: Cough type: acute Qualified Code(s): R05.1 - Acute cough Plan For cough and dyspnea: Patient advised to go to urgent care directly after this visit For cognitive s/s: Continue vitamin B1-2 500mcg daily. Improved off topiramate. Monitor clinically. HST- inconclusive- upon review of above, reconsider in-lab PSG to assess for PLMS. ? For overall headache management: Continue to try to optimize good self-care, including but not limited to maintaining a healthy diet, adequate fluid intake, adequate sleep, and engaging in regular physical activity. Track headaches. ? For acute headache treatment: Continue Zolmitriptan 5mg prn. Previous acute migraine medication trials: None other Acute migraine medication contraindications: None at this time ? For headache prevention medication: Continue Riboflavin 400mg daily in the morning Continue Magnesium 400mg daily at bedtime Continue Emgality 120mg/ml auto-injection, maintenance dose: 120mg (120mg/ml autoinjector) subcutaneous injection every month. * On Emgality, she has had greater than 50% reduction in monthly migraine days Previous migraine prevention medication trials: Amitriptyline- ineffective. Propranolol- not tolerated- caused fatigue/tiredness. Topiramate caused cognitive difficulties. Ajovy 225mg sc q month- caused severe diffuse injection site reaction. Migraine prevention medication contraindications: None at this time. Future considerations: Botox. ? Pt to follow-up in 12 months or sooner prn. Coding Level of Care Code Est Pt Level 4 (30072) Diagnoses Migraine with aura and without status migrainosus, not intractable G43.109 Status migrainosus presence: without status migrainosus Intractability: not intractable Cognitive dysfunction F09 Anxiety F41.9 Acute cough R05.1 Cough type: acute
--- OUTSIDE RECORDS SUMMARY | 2025-04-15 08:49 | XMS_ITS | Encounter Summary ---
Author Organization [facility] Address [address] [place] [address] Phone Care Team Providers Care Electrical Fitter Name Role Phone Selena Dias MD Primary Care Provider [phone] Encounter Details Date Type Department Care Team (Late st Contact Info) Description 04/04/2025 Orders Only [facility] Medical [facility] [address] [place] [address] Provider, MD Elizabeth [address] [place], [place] [id number] Social History Tobacco Use Types Packs/Day Years [...] on file documented as of this encounter Plan of Treatment Upcoming Encounters Date Type Department Care Team (Late st Contact Info) Description 09/18/2025 3:30 PM EDT Office Visit [facility] [place] [facility] [address] [place] [address] [place] [address] Selena Dias MD [address] [place] [address], [address] [place] [address] [email or web address] documented as of this encounter Procedures Procedure Name Priority Date/Time Associated Diagnosis Comments MAMMOGRAPHY Routine 05/24/2023 11:22 AM EST documented in this encounter Results * MAMMOGRAPHY FOR RESULT ENTRY ONLY (05/24/2023 11:22 AM EST) us Historical Provider HEALTH MAINTENANCE Final Result documented in this encounter Visit Diagnoses Not on filedocumented in this encounter Additional Health Concerns Assessment Noted Time PHQ-9 Depression Total Score: 0 06/28/19 23 9:04 AM EST PHQ-2 Depression Total Score: 0 03/13/20 25 4:54 PM EDT documented as of this encounter Care Teams Electrical Fitter Relationship Specialty Start Date End Date Selena Dias MD [address] [place] [address], [address] [place] [address] [email or web address] PCP - General 06/16/17 documented as of this encounter Additional Source Comments The information contained in this document represents components of the legal health record. It is not the complete legal health record.[facility]
--- OUTSIDE RECORDS SUMMARY | 2025-04-15 08:49 | XMS_ITS | Encounter Summary ---
Author Organization [facility] Address [address] [place] [address] Phone Care Team Providers Care Bobbin Presser Name Role Phone Selena Dias MD Primary Care Provider [phone]- [phone] Encounter Details Date Type Department Care Team (Late st Contact Info) Description 11/25/2024 Procedure Pass [facility], Ct Scan - [address] [id number] Social History Tobacco Use Types Packs/Day Years [...] Risk Indicated 11/25/2024 11:02 AM EDT Krupa Goodwin, RN * [place] Suicide Severity Rating Scale (Screener/Recent Self-Report) Question Answer Date of Assessment Author 1. Wish to be (Past 1 Month) No 025 11:02 AM EDT Krupa Goodwin RN 2. Non-Specific Active Suici nba Thoughts (Past 1 Month) No 11/25/2024 11:02 AM EDT Lou Goodwin RN 6. Suicidal Behavior (Lifetime) No 11:02 AM EDT Krupa Goodwin RN documented as of this encounter Plan of Treatment Upcoming Encounters Date Type Department Care Team (Late st Contact Info) Description 09/18/2025 3:30 PM EDT Office Visit [facility] Medicine [address] [place] [id number] Selena Dias MD [address] [place] [address], [address] [place] [address] [email or web address] documented as of this encounter Visit Diagnoses Not on filedocumented in this encounter Additional Health Concerns Assessment Noted Time PHQ-9 Depression Total Score: 0 06/28/19 23 9:04 AM EST PHQ-2 Depression Total Score: 0 06/28/19 9:04 AM EST documented as of this encounter Care Teams Bobbin Presser Relationship Specialty Start Date End Date Selena Dias MD [address] [place] [address], [address] [place] [address] PCP - General 06/16/17 documented as of this encounter Additional Source Comments The information contained in this document represents components of the legal health record. It is not the complete legal health record.[facility]
--- OUTSIDE RECORDS SUMMARY | 2025-04-15 08:49 | XMS_ITS | Clinical Summary ---
Author Organization [facility] Address [address] [place] [address] Phone Care Team Providers Care Road Inspector Name Role Phone Selena Dias MD Primary Care Provider [phone]- [phone] Allergies Active Allergy Reactions Criticality Noted Date Comments Amoxicillin Unknown 07/01/2022 Sulfamethoxazole-Trimethoprim Unknown 2022 Morphine Rash Low 07/01/2022 Medications Lactobac no.41/Bifidobact no.7 (PROBIOTIC-10 ORAL) Take by mouth. Activ e JUNEL 07/02, , 1-20 mg-mcg per tablet 12/03/19 20 Active riboflavin, vitamin B2, (,VITAMIN B-2,) 100 mg Tab 400 MG ORALLY DAILY FOR 30 DAYS IN AM 11/11/19 23 Active magnesium oxide (MAG-OX) 400 mg (241.3 mg elemental) tablet 400 MG ORALLY BEDTIME FOR 30 DAYS MAY HOLD FOR LOOSE STOOLS 11/10/19 23 Active VITAMIN B-12 500 MCG tablet Take 1 tablet by mouth every morning. 11/19/19 24 Active ZOLMitriptan (ZOMIG) 5 MG tabletIndication s:Migraine without status migrainosus, not intractable, unspecified migraine type TAKE 1 TABLET NEEDED FOR MIGRAINE 12 tablet 11 02/05/20 25 Active sertraline (ZOLOFT) 100 MG tabletIndication s:Depression with anxiety TAKE 2 TABLETS BY MOUTH EVERY DAY 180 tablet 02/23/20 25 Active EMGALITY PEN 120 mg/mL subcutaneous injection INJECT 120 MG SUBCUTANEOUSLY EVERY 30 DAYS FOR 30 DAYS 02/26/20 Active WEGOVY 2.4 mg/0.75 mL subcutaneous pen injection PLEASE SEE ATTACHED FOR DETAILED DIRECTIONS 02/26/20 Active Active Problems Problem Noted Date Diagnosed Date Obesity 11/12/2021 Fatigue 11/12/2021 Irritable bowel syndrome wit h both constipation and diarrhea 08/02/2017 Depression with anxiety 06/20/2017 Assessment & Plan (03/15/2025 1:49 PM EDT): Feeling well on current SSRI tx Continue current regimen Diarrhea 06/20/2017 Migraine 06/20/2017 Mucus in stool 06/20/2017 Onychomycosis 06/20/2017 Psoriasis 06/20/2017 Nephrolithiasis 06/20/2017 Rectal bleeding 06/20/2017 Encounters Date Type Department Care Team Description 04/04/2025 Orders Only [address] [place] [id number] ProviderElizabeth MD 03/18/2025 Orders Only [address] [place] [id number] ProviderElizabeth MD 03/15/[address] [place] [id number] Selena Dias MD Forms & Paperwork 03/13/2025 4:45 PM EDT Office Visit [address] [place] [id number] Selena Dias MD Depression with anxiety (Primary Dx); Umbilical hernia without obstruction and without gangrene 02/22/[address] [place] [id number] Selena Dias MD Medication Refill 02/03/[address] [place] [id number] Trina Agarwal, WIFLREDO Medication Refill from Last 3 Months Immunizations Immunization Administration Dates Next Due COVID-19 (Pre-04/04) Pfizer Vaccine, mRNA, PF ,08/28/2020 Family History Medical History Relation Comments Depression Father Leukemia Father Cancer Maternal Grandfather Breast cancer Maternal Grandmother onset 50s Dementia Maternal Grandmother Brain tumor Mother meningioma Cancer Paternal Grandfather Cancer Paternal Grandmother Anxiety disorder Sister 1 depression Relation Status Comments Father Maternal Grandfather Maternal Grandmother Mother Alive Paternal Grandfather Paternal Grandmother Sister 1 Alive Sister 2 Alive Social History Tobacco Use Types Packs/Day Years [...] your housing situation today? I have eileen sing 11/25/2024 How many times have you move [...] file Not on file Not on file Last Filed Vital Signs Vital Sign Reading Time Taken Comments Blood Pressure 120/72 03/13/2025 4:56 PM EDT Pulse 83 03/13/2025 4:56 PM EDT Temperature 36.3 C (97.3 F) 03/13/2025 4:56 PM EDT Respiratory Rate 18 11/25/2024 6:31 PM EDT Oxygen Saturation 99% 03/13/2025 4:56 PM EDT Inhaled Oxygen Concentration - - Weight 108.9 kg (240 lb) 03/13/2025 4:56 PM EDT Height 165.1 cm (5' 5 ) 03/13/2025 4:56 PM EDT Body Mass Index 39.94 03/13/2025 4:56 PM EDT Plan of Treatment Upcoming Encounters Date Type Department Care Team (Late st Contact Info) Description 09/18/2025 3:30 PM EDT Office Visit [facility] Medicine [address] [place] [address] Selena Dias MD [address] [facility], [address] [place] [address] [email or web address] Health Maintenance Due Date Last Done Comments Adult Td,Tdap Booster 1980 INFLUENZA VACCINE (#1) 2025 COVID-19 VACCINE (2024-2 6 season) 2025 07/06/2021, 09/20/2020, 08/28/2020 MAMMOGRAM 05/24/2025 05/24/2023 DEPRESSION SCREENING 03/13/2026 03/13/2025, 06/28/2022 SCREENING FOR DIABETES 11/26/2027 , 06/28/2022 PAP SMEAR 11/11/2028 11/12/2023, 05/19/2018, 08/04/2010 HIV ONE-TIME SCREENING (18-6 5 YEARS) Completed 04/11/2013 HEPATITIS C SCREENING Completed 12/08/2021 SMOKING STATUS SCREENING (On ce After 26 Yrs) Completed 03/13/2025 HEPATITIS A VACCINES Aged Out No long er eligible based on patient's age to complete this topic HIB VACCINES Aged Out No longer eligi ble based on patient's age to complete this topic MENINGOCOCCAL VACCINES (ACWY) Aged Out No longer eligible based on patient's age to complete this topic MENINGOCOCCAL VACCINES (B) Aged Out N o longer eligible based on patient's age to complete this topic PNEUMOCOCCAL VACCINES (0-49 years) Aged Out No longer eligible b ased on patient's age to complete this topic Medical Devices Not on file Procedures Procedure Name Priority Date/Time Associated Diagnosis Comments OUTSIDE MR IMAGING REPORT ONLY Routine 02/25/2025 1:30 PM EDT OUTSIDE US IMAGING REPORT ONLY Routine 02/05/2025 1:29 PM EDT OUTSIDE US PELVIS REPORT ONLY Routine 02/05/2025 1:28 PM EDT HM PAP SMEAR FOR RESULT ENTRY ONLY Routine 11/12/2023 HM MAMMOGRAPHY Routine 05/24/2023 11:22 AM EST HEPATITIS C ANTIBODY, QUALITATIVE Routine 12/08/2021 3:47 PM EDT Need for hepatitis C screening test OUTSIDE HIV Routine 04/11/2013 from Last 3 Months or Most Recently Relevant to Health Maintenance Results * Outside MR Imaging Report Only (02/25/2025 1:30 PM EDT) Historical Provider MD OLGUIN MR Final Res ult * Outside US Imaging??Report Only (02/05/2025 1:29 PM EDT) Historical Provider MD OLGUIN US OP Final Res ult * Outside US Pelvis Report Only (02/05/2025 1:28 PM EDT) Result [facility] Historical Provider MD OLGUIN US PELVIS Final Res ult * HM PAP SMEAR FOR RESULT ENTRY ONLY (11/12/2023) Pap smear NIL HPV neg Result [facility] Historical Provider HEALTH MAINTENANCE Final Result * HM MAMMOGRAPHY FOR RESULT ENTRY ONLY (05/24/2023 11:22 AM EST) Result [facility] Historical Provider HEALTH MAINTENANCE Final Result * Hepatitis C antibody, qualitative (12/08/2021 3:47 PM EDT) HCV NON-REACTIV E NON-REACTI VE [facility] Blood 12/08/2021 3:47 PM EDT 12/08/2021 3:54 PM EDT Selena Dias MD LAB BLOOD BKR ORDERABLES F inal Result [facility] [address] [place] [address] * OUTSIDE HIV TEST (04/11/2013) HIV - External Neg Result [facility] Historical Provider LAB BLOOD ORDERABLES Christine l Result from Last 3 Months or Most Recently Relevant to Health Maintenance Insurance O O O HMO HMO Care Teams Road Inspector Relationship Specialty Start Date End Date Selena Dias MD [address] [place] [address], [address] [place] [address] PCP - General 06/16/17 Additional Source Comments The information contained in this document represents components of the legal health record. It is not the complete legal health record.[facility]
--- OUTSIDE RECORDS SUMMARY | 2025-04-15 08:49 | XMS_ITS | Encounter Summary ---
Author Organization [facility] Address [address] [place] [address] Phone Care Team Providers Care Clinical Pharmacy Coordinator Name Role Phone Selena Dias MD Primary Care Provider [phone]- [phone] Reason for Referral * MRI/CAT Scan - Closed Specialty Diagnoses / Procedures Referred By Rita quintero Referred To Contact Radiology Procedures Outside MR Imaging Report Only [address] [place] [address] Phone: tel: fax: Referral ID Status Reason Start Date Expiration Date Visits Re quested Visits Authorized [id number] Closed 03/18/2025 1 1 Encounter Details Date Type Department Care Team (Late st Contact Info) Description 03/18/2025 Orders Only [address] [place] [address] ProviderElizabeth MD [address] [place] [address] Social History Tobacco Use Types Packs/Day Years [...] Description 09/18/2025 3:30 PM EDT Office Visit [facility] Medicine [address] [place] [address] [place] [address] Selena Dias MD [address] [facility], [address] [place] [address] [email or web address] documented as of this encounter Procedures Procedure Name Priority Date/Time Associated Diagnosis Comments OUTSIDE MR IMAGING REPORT ONLY Routine 02/25/2025 1:30 PM EDT OUTSIDE US IMAGING REPORT ONLY Routine 02/05/2025 1:29 PM EDT OUTSIDE US PELVIS REPORT ONLY Routine 02/05/2025 1:28 PM EDT documented in this encounter Results * Outside MR Imaging Report Only (02/25/2025 1:30 PM EDT) us Historical Provider MD OLGUIN MR Final Res ult * Outside US Imaging??Report Only (02/05/2025 1:29 PM EDT) us Historical Provider MD OLGUIN US OP Final Res ult * Outside US Pelvis Report Only (02/05/2025 1:28 PM EDT) us Historical Provider MD OLGUIN US PELVIS Final Res ult documented in this encounter Visit Diagnoses Not on filedocumented in this encounter Additional Health Concerns Assessment Noted Time PHQ-9 Depression Total Score: 0 06/28/19 23 9:04 AM EST PHQ-2 Depression Total Score: 0 03/13/20 25 4:54 PM EDT documented as of this encounter Care Teams Clinical Pharmacy Coordinator Relationship Specialty Start Date End Date Selena Dias MD [address] [place] [address], [address] [place] [address] [email or web address] PCP - General 06/16/17 documented as of this encounter Additional Source Comments The information contained in this document represents components of the legal health record. It is not the complete legal health record.[facility]
== END 2025-04-15 09:06 | disposition home or self-care (01) ==
LOC: HO.HSMS 08:28
PROVIDERS: PCP Family Medicine; Visit Provider Nurse Practitioner Family
DX: G43.109 Migraine with aura, not intractable, without status migrainosus (principal); R41.89 Other symptoms and signs involving cognitive functions and awareness; F41.9 Anxiety disorder, unspecified; R05.1 Acute cough
CPT/HCPCS: 99214

== ENCOUNTER 2025-04-15 09:09 | Outpatient (AMB) | payer OTHER, SELFPAY ==
[2025-04-15 09:11] VITALS: BP 110/60; PULSE 82; TEMP 36.8; O2SAT 95; BMI 39.6
--- NOTE | 2025-04-15 09:11 | MHC.OFFWIV ---
Intake Vital Signs 04/15/25 09:11 Height 5 ft 5 in Weight 238 lb BMI 39.6 BP 110/60 Blood Pressure Location Rt brachial Position Sitting Pulse 82 Pulse Source Pulse Oximeter Temp 98.3 F Temp Source Oral Pulse Oximetry (%) 95 Oxygen Delivery Method Room Air Intake Visit Reasons: EP - Dry Cough Intake Note: EP complains of productive cough (yellow-brownish color) and difficulty breathing for the last three weeks. Patient Tobacco Use Status: Never used Tobacco Allergies No Known Allergies Allergy (Verified 04/15/25 09:23) Medication List - Last Reconciled 04/15/25 by Daly Gaytan MD cyanocobalamin (vitamin B-12) 500 mcg PO DAILY 30 days galcanezumab-gnlm (Emgality Pen) 120 mg subcut Q30D 30 days magnesium oxide 400 mg PO BEDTIME 30 days norethindrone ac-eth estradiol 1-20 mg-mcg (Junel) 1 tab PO DAILY riboflavin (vitamin B2) 400 mg (4 x 100 mg) PO DAILY 30 days semaglutide (weight loss) (Wegovy) 2.4 mg subcut QWEEK sertraline 100 mg PO DAILY zolmitriptan mg PO Do you need a note to return to daycare/school/sports/work: No HPI HPI Comments History of Present Illness Details History of Present Illness The patient is a 44-year-old female presenting with persistent cough Persistent Cough: - The patient reports a phlegmy cough persisting for three weeks. - The cough worsens with speaking, laughing, or certain activities - The cough occurs consistently, even during times of rest or inactivity. - Reports noticing crackles with coughing - Denies significant shortness of breath but reports that deep breathing worsening cough - Denies significant rhinorrhea or congestion. - No fevers or chills. - Denies any nausea, vomiting, or diarrhea - Has attempted to use dimetapp at night without much relief. Review of Systems Constitutional: Negative for fevers, chills HENT: Negative for congestion, rhinorrhea Respiratory: Reports cough and mild shortness of breath Negative for chest tightness, wheezing Cardiac: Negative for chest pain Gastrointestinal: Negative for, nausea, vomiting, diarrhea, Physical Exam General Appearance: Normal appearance, well developed. No acute distress ENT: External ears and ear canals normal. TM without erythema or bulging. No significant nasal discharge or congestion present. No postnasal drip. Oropharynx clear without erythema or exudate. Head: Normocephalic, atraumatic Pulmonary: Crackles noted along the left upper lobe, improves with coughing. Mild inspiratory wheezing noted in the lower lung bases. No respiratory distress. Speaking in full sentences Cardiac: Regular rate and rhythm. No murmurs. Musculoskeletal: Moving all extremities spontaneously and against gravity Mental Status: Alert and Oriented x 3 Psychiatric: Normal mood. Normal affect. [facility] Medical History (Updated 04/15/25 @ 09:17 by PAIGE Santoyo) Weight gain Surgical History History of knee surgery Family History Father Alcoholism Leukemia Mother Hypertension Brain tumor Social History Alcohol intake: never Patient Tobacco Use Status: Never used Tobacco Physical Exam Vital Signs: Last Vital Signs Temp 98.3 F 04/15/25 09:11 Pulse 82 04/15/25 09:11 BP 110/60 04/15/25 09:11 Pulse Ox 95 04/15/25 09:11 Oxygen Delivery Method Room Air 04/15/25 09:11 BMI result Body Mass Index 39.6 Assessment & Plan Assessment & Plan (1) Acute bronchitis: Code(s): J20.9 - Acute bronchitis, unspecified Qualifiers: Bronchitis organism: unspecified organism Qualified Code(s): J20.9 - Acute bronchitis, unspecified (2) Cough: Code(s): R05.9 - Cough, unspecified Qualifiers: Cough type: acute Qualified Code(s): R05.1 - Acute cough Plan - Initiated treatment with prednisone, considering the reactive cough and wheezing. Discussed temporary increase in blood sugars while taking steroids. Patient was also informed about potential side effects such as insomnia. - Prescribed albuterol inhaler to use as needed for cough and wheezing - Plan for chest x-ray to evaluate underlying conditions like pneumonia. - Consideration of antibiotics is deferred, pending x-ray results. - Advised prompt medical evaluation of worsening symptoms such as new fevers, chest pain, or increased shortness of breath Orders: Orders XR chest 2V Today R05.9 - Cough, unspecified Medications: New prednisone 40 mg (2 x 20 mg) PO QAM 10 tabs 0RF albuterol sulfate 90 mcg/actuation 2 puffs inhalation Q6H PRN 8.5 grams 0RF shortness of breath or wheezing or cough Coding Level of Care Code New Pt Level 3 (83714) Diagnoses Acute bronchitis, unspecified organism J20.9 Bronchitis organism: unspecified organism Acute cough R05.1 Cough type: acute
== END 2025-04-15 12:55 | disposition home or self-care (01) ==
PROVIDERS: PCP Family Medicine; Visit Provider Family Medicine
DX: J20.9 Acute bronchitis, unspecified (principal); R05.1 Acute cough
CPT/HCPCS: 99203

== ENCOUNTER → 2025-04-15 10:17 | Outpatient (BNV) | payer OTHER, SELFPAY | PROVIDERS: Absent Provider Family Medicine; PCP Family Medicine; Visit Provider Radiology Diagnostic Radiology | DX: R05.9 Cough, unspecified (principal) | CPT/HCPCS: 71046 ==